=== PATIENT | male | born 1955 | race Two or more races ===

== ENCOUNTER 2020-09-07 18:01 | Outpatient (CLI) | payer OTHER | END 2020-09-07 18:09 | disposition home or self-care (01) | LOC: LAB 18:01 | PROVIDERS: ATTEND Urology | DX: R97.20 Elevated prostate specific antigen [PSA] (principal) ==

== ENCOUNTER 2020-09-12 07:07 | Outpatient (CLI) | payer OTHER | END 2020-09-12 07:18 | disposition home or self-care (01) | LOC: SONOGRAMA 07:07 | PROVIDERS: ATTEND Urology | DX: D29.1 Benign neoplasm of prostate (principal); R97.20 Elevated prostate specific antigen [PSA] ==

== ENCOUNTER 2020-09-28 09:15 | Inpatient (IN) | payer OTHER ==
[~2020-09-28] VITALS: Ht 162.6 cm; Wt 77.1 kg
[2020-09-28] MEDS ORDERED: PROCARDIA PO (12:35)
[2020-10-05] MEDS ORDERED: IRBESARTAN300 MG (13:13)
[2020-10-05] MEDS ORDERED: LOSARTAN POTASS50 MG (13:13)
[2020-10-05] MEDS ORDERED: GLIMEPIRIDE2 M1 (13:13)
[2020-10-05] MEDS ORDERED: NIFEDIPINE ER60 M1 (13:13)
[2020-10-05] MEDS ORDERED: ATENOLOL25 MG (13:14)
[2020-10-05] MEDS ORDERED: TAMSULOSIN HCL0.4 MG (13:14)
== END 2020-10-06 12:24 | disposition home or self-care (01) | DRG 713 ==
LOC: SURH 10-05 07:07 → O/R 10-05 07:07 → SURH 10-05 09:15
PROVIDERS: ADMIT Urology; ATTEND Urology
PROC: 0TCB8ZZ Extirpation of Matter from Bladder, Via Natural or Artificial Opening Endoscopic (ICD-10-PCS; 2020-10-05)
PROC: 0VT08ZZ Resection of Prostate, Via Natural or Artificial Opening Endoscopic (ICD-10-PCS; principal; 2020-10-05 11:00)
DX: N40.1 Benign prostatic hyperplasia with lower urinary tract symptoms (principal); N20.1 Calculus of ureter; R33.8 Other retention of urine